=== PATIENT | male | born 1960 | race Caucasian/White ===

== ENCOUNTER 2020-09-13 11:11 | Emergency (ER) | payer BC, OTHER ==
[~2020-09-13] VITALS: Ht 193 cm; Wt 95.3 kg
[2020-09-13] MEDS ORDERED: METOCLOPRAMIDE HCL 10 MG/2 ML VIAL IV ONE (11:30)
[2020-09-13] MEDS ORDERED: KETOROLAC TROMETHAMINE 15 MG INJ IVP ONE (11:30)
[2020-09-13] MEDS ORDERED: IV NORMAL SALINE 1000 ML BAG IV ONE ×2 (11:30→13:15)
[2020-09-13] MEDS ORDERED: METOCLOPRAMIDE HCL 10 MG/2 ML VIAL ONE (12:28)
[2020-09-13] MEDS ORDERED: KETOROLAC TROMETHAMINE 15 MG INJ ONE (12:28)
[2020-09-13 12:33] LABS: BASOPHILS % (AUTO) 0.7 % (0.0-2.0); HEMOGLOBIN 16.2 g/dL (12.5-16.3); LYMPHOCYTES # (AUTO) 0.2 K/uL (20.0-40.0); LYMPHOCYTES % (AUTO) 4.1 % (20.5-51.5); MEAN CORPUSCULAR HEMOGLOBIN 32.8 uug (23.8-33.4); MEAN CORPUSCULAR HGB CONC 35 g/dL (32.5-36.3); MEAN CORPUSCULAR VOLUME 92.9 fL (73.0-96.2); MONOCYTES # (AUTO) 0.7 K/uL (2.0-10.0); MONOCYTES % (AUTO) 17.7 % (0.0-11.0); NEUTROPHILS # (AUTO) 3.1 K/uL (1.8-8.9); NEUTROPHILS % (AUTO) 77.5 % (38.5-71.5); PLATELET COUNT (AUTO) 191 K/uL (152-348); RED BLOOD CELL COUNT(AUTO) 4.96 MIL/uL (4.06-5.63); WHITE BLOOD COUNT (AUTO) 4.1 K/uL (3.6-10.2)
[2020-09-13 12:44] LABS: CREATININE 1.3 mg/dL (0.6-1.3); POTASSIUM 3.4 mmol/L (3.5-5.1)
[2020-09-13 12:55] LABS: BILIRUBIN,DIRECT 0.4 mg/dL (0.0-0.2); TOTAL PROTEIN, SERUM 6.7 g/dL (6.4-8.2)
--- NOTE | 2020-09-13 14:19 | NUR ---
Pt just able to give urine sample, taken to lab.
[2020-09-13 14:26] LABS: *CLARITY,URINE CLEAR (CLEAR); *COLOR,URINE YELLOW (YELLOW); *KETONES,URINE NEGATIVE (NEGATIVE); *UROBILINOGEN,URINE 0.2 E.U./dl (NORMAL); LEUKOCYTE ESTERASE ,URINE NEGATIVE (NEGATIVE); NITRITE, URINE NEGATIVE (NEGATIVE); PH,URINE 5.5 (5.0-8.0); UGLUCOSE NEGATIVE (NEGATIVE)
[2020-09-13 14:28] LABS: *BILIRUBIN,URIN 1+ (NEGATIVE); *BLOOD, URINE TRACE (NEGATIVE)
[2020-09-13 14:28] LABS: BAND % (MANUAL) 4 % (0-10); LYMPHOCYTES % (MANUAL) 4 % (20-40); NEUTROPHILS % (MANUAL) 74 % (42-75)
[2020-09-13 14:29] LABS: EOSINOPHILS % (MANUAL) 1 % (0-8); MONOCYTES % (MANUAL) 17 % (2-10)
[2020-09-13 14:53] LABS: BACTERIA,URINE NONE SEEN /HPF (NONE SEEN); RBC,URINE 0-3 /HPF (0-3); SQUAMOUS EPITHELIAL CELL,UR NONE SEEN /HPF (NONE SEEN); WBC,URINE 0-3 /HPF (0-3)
[2020-09-13] MEDS ORDERED: AZIT500T2 PO (15:31)
--- NOTE | 2020-09-13 15:35 | NUR ---
Removed IV intact, site okay, bandaged. Gave pt d/c instructions, pt verbalized understanding.
== END 2020-09-13 15:49 | disposition home or self-care (01) ==
LOC: ER 11:11
DX: A05.9 Bacterial foodborne intoxication, unspecified (principal); E86.0 Dehydration; Z88.0 Allergy status to penicillin; Z79.899 Other long term (current) drug therapy
CPT/HCPCS: 36415; 76705; 80048; 80076; 81001; 83690; 84484; 85007; 85025; 93005; 96361; 96374; 96375; 99285; J1885; J2765; 70030-TC; A4663; J7030

== ENCOUNTER 2020-11-12 00:29 | Inpatient (IN) | payer BC, OTHER ==
[~2020-11-12] VITALS: Ht 188 cm; Wt 86.2 kg
[~2020-11-12 00:29] MED LIST: AZIT500T2 PO
--- NOTE | 2020-11-12 00:48 | NUR ---
MD Perea in room to do MSE.
[2020-11-12] MEDS ORDERED: IV NORMAL SALINE 1000 ML BAG IV ONE (01:00)
[2020-11-12] MEDS ORDERED: ACETAMINOPHEN ES 500 MG TABLET PO ONE (01:00)
[2020-11-12] MEDS ORDERED: ONDANSETRON 4 MG/2 ML VIAL IV ONE (01:00)
[2020-11-12 01:22] LABS: HEMATOCRIT 41.7 % (36.7-47.1); MEAN CORPUSCULAR HEMOGLOBIN 31.4 uug (23.8-33.4); MEAN CORPUSCULAR VOLUME 92.4 fL (73.0-96.2); PLATELET COUNT (AUTO) 252 K/uL (152-348)
[2020-11-12] MEDS ORDERED: ONDANSETRON 4 MG/2 ML VIAL ONE (01:25)
[2020-11-12] MEDS ORDERED: ACETAMINOPHEN ES 500 MG TABLET ONE (01:25)
[2020-11-12 01:42] LABS: POTASSIUM 3.4 mmol/L (3.5-5.1)
[2020-11-12 01:47] LABS: BILIRUBIN,DIRECT 0.2 mg/dL (0.0-0.2); BILIRUBIN,TOTAL 0.6 mg/dL (0.2-1.0)
[2020-11-12 01:55] LABS: *BILIRUBIN,URIN NEGATIVE (NEGATIVE); *BLOOD, URINE NEGATIVE (NEGATIVE); *CLARITY,URINE CLEAR (CLEAR); *COLOR,URINE YELLOW (YELLOW); *KETONES,URINE TRACE (NEGATIVE); *UROBILINOGEN,URINE 0.2 E.U./dl (NORMAL); LEUKOCYTE ESTERASE ,URINE NEGATIVE (NEGATIVE); NITRITE, URINE NEGATIVE (NEGATIVE); UGLUCOSE NEGATIVE (NEGATIVE)
[2020-11-12] MEDS ORDERED: IOHEXOL 300MG/ML 100 ML INFUS..BTL ONE (01:58)
[2020-11-12] MEDS ORDERED: IV NORMAL SALINE 250 ML IV ONE (01:58)
[2020-11-12] MEDS ORDERED: SWABABLE VALVE TRANSFER SET EA MC ONE (01:58)
--- NOTE | 2020-11-12 02:00 | NUR ---
Patient taking by battery service technician out for CT scan.
--- NOTE | 2020-11-12 02:15 | NUR ---
Patient returned from CT scan.
[2020-11-12 02:24] LABS: BACTERIA,URINE NONE SEEN /HPF (NONE SEEN); RBC,URINE NONE SEEN /HPF (0-3); SQUAMOUS EPITHELIAL CELL,UR NONE SEEN /HPF (NONE SEEN); WBC,URINE NONE SEEN /HPF (0-3)
--- NOTE | 2020-11-12 02:29 | NUR ---
Patient states that he feels much better, doesn't feel nauseous anymore.
[2020-11-12] MEDS ORDERED: CIPR-262 PO (02:41)
[2020-11-12] MEDS ORDERED: ONDA4TAB11 PO (02:43)
[2020-11-12] MEDS ORDERED: IV NS 1000 ML 1,000 ML IV ONE (02:45)
[2020-11-12] MEDS ORDERED: POTASSIUM CHLORIDE 20 MEQ TAB.PRT.SR PO ONE (02:45)
[2020-11-12] MEDS ORDERED: CIPROFLOXACIN HCL 250 MG TABLET PO ONE (02:45)
[2020-11-12] MEDS ORDERED: MAGNESIUM OXIDE 400 MG TABLET PO ONE (02:45)
--- NOTE | 2020-11-12 03:08 | NUR ---
Patient is resting comfortably in bed with eyes closed, no acute distress noted.
--- NOTE | 2020-11-12 03:40 | NUR ---
Patient is assigned to telemetry room 308.
--- NOTE | 2020-11-12 03:41 | NUR ---
Called [facility] for panel call with Kelin Cruz.
[2020-11-12] MEDS ORDERED: IBUPROFEN 600 MG TABLET PO ONE (03:45)
[2020-11-12] MEDS ORDERED: TAMS-3 PO (03:51)
[2020-11-12] MEDS ORDERED: KETO15CR2 TP (03:51)
[2020-11-12] MEDS ORDERED: EMTR1TAB13 PO (03:51)
[2020-11-12] MEDS ORDERED: IV NS 1000 ML 1,000 ML IV PRN (04:00)
[2020-11-12] MEDS ORDERED: ACETAMINOPHEN 325 MG TABLET PO PRN (04:00)
[2020-11-12] MEDS ORDERED: MORPHINE SULFATE 2 MG/1 ML DISP.SYRIN IV PRN (04:00)
--- NOTE | 2020-11-12 04:10 | NUR ---
Report given to RN Will.
--- NOTE | 2020-11-12 04:19 | NUR ---
criminal records technician Alejandro called to inform patient is COVID negative.
--- NOTE | 2020-11-12 04:55 | NUR ---
Pt. admitted to telemetry 308, under care of X RAY DEVELOPING MACHINE OPERATOR Kelin Cruz. [place] completed
--- NOTE | 2020-11-12 05:00 | NUR ---
ADMITTED IN TELE FLOOR UNDER THE CARE OF ADILENE SANTILLAN NP. PATIENT ALERT ORIENTED, NO SOB NO CHEST PAIN, COMPLAIN OF MINIMAL ABDOMINAL PAIN. CALL LIGHT WITHIN REACH.
[2020-11-12 05:31] VITALS: BP 93/58
[2020-11-12] MEDS: ACIDOPHILUS/BULGARICUS CHEW TAB GT SCH ×2 (05:56→14:50)
[2020-11-12] MEDS: METOCLOPRAMIDE HCL 10 MG/2 ML VIAL IV SCH ×3 (05:56→17:14)
--- NOTE | 2020-11-12 07:08 | NUR ---
PATIENT ALERT ORIENTED NO SOB NO CHEST PAIN, NO ABDOMINAL PAIN AT THIS TIME, NO DIARRHEA AT THIS TIME, PATIENT REMAINS NPO EXCEPT FOR MEDS, CALL LIGHTS WITHIN REACH.
--- NOTE | 2020-11-12 07:31 | NUR ---
received resting but easily arousable. no acute distress. denies nausea, vomiting or diarrhea. iv intact and infusing well. kept comfortable. cotinue to monitor.
[2020-11-12] MEDS ORDERED: TAMSULOSIN HCL 0.4 MG CAP.SR.24H PO SCH ×2 (09:00→21:00)
[2020-11-12] MEDS ORDERED: PANTOPRAZOLE SODIUM 40 MG VIAL IV SCH (09:00)
[2020-11-12] MEDS ORDERED: Emtricitabine/Tenofov Alafenam (Descovy 200-25 mg Tablet PO SCH (09:00)
[2020-11-12 11:41] VITALS: BP 92/59
--- NOTE | 2020-11-12 12:03 | NUR ---
Patient reports 2 loose bowel movements. Denies nausea or vomiting.
--- NOTE | 2020-11-12 13:36 | NUR ---
POWER TRANSFORMER REPAIR SUPERVISOR Anjali in the room to see patient with order to advance to soft diet noted and carried out.
[2020-11-12] MEDS ORDERED: CIPROFLOXACIN IV 400 MG in PREMIXED 1 EACH IV SCH (15:00)
[2020-11-12 15:27] VITALS: BP 98/70
[2020-11-12] MEDS ORDERED: LEVO500T90 PO (16:21)
--- NOTE | 2020-11-12 18:38 | NUR ---
Patient is discharged to home. Alert and oriented x4. No acute distress. Patient tolerated dinner. Denies abdominal pain, nausea, vomiting or diarrhea. No further bm today. Discharge instructions relayed to the patient and verbalized understanding. Went over discharge medications with the patient and he verbalized understanding. Per patient, another friend is picking him up as he was unable to get ahold of friend Rubens. Safety and fall precautions maintained. Patient remains stable. Patient is kept comfortable. Waiting for picking belt operator.
--- NOTE | 2020-11-12 19:16 | NUR ---
Patient is discharged to home. Ambulatory, in pleasant mood. IV access removed, no bleeding noted. Patient remains alert and oriented x4. Denies pain, sob, nausea, vomiting or diarrhea. Discharged in stable condition.
== END 2020-11-12 19:18 | disposition home or self-care (01) | DRG 372 ==
LOC: ER 00:40 → TELE3 04:44
PROVIDERS: ADMIT Nurse Practitioner Acute Care; ATTEND Nurse Practitioner Acute Care
DX: A04.9 Bacterial intestinal infection, unspecified (principal); E87.1 Hypo-osmolality and hyponatremia; D89.89 Other specified disorders involving the immune mechanism, not elsewhere classified; E86.0 Dehydration; E87.6 Hypokalemia; N40.0 Benign prostatic hyperplasia without lower urinary tract symptoms; Z20.822 Contact with and (suspected) exposure to COVID-19; Z88.0 Allergy status to penicillin; T37.5X5A Adverse effect of antiviral drugs, initial encounter; Y92.009 Unspecified place in unspecified non-institutional (private) residence as the place of occurrence of the external cause
CPT/HCPCS: 36415; 70030-TC; 83605; 85025; 87040; A4663; A9150; C9113; G0378; J0744; J2405; J2765; J7030; J7050; Q9967